=== PATIENT | male | born 1945 | race Caucasian/White ===

== ENCOUNTER 2020-12-20 09:25 | Day surgery (SDC) | payer MEDICARE ==
[~2020-12-20] VITALS: Ht 172.7 cm; Wt 78.0 kg
[~2020-12-20 09:25] MED LIST: LIDOcaine 1% 30ml preserv. free vial SQ STA
[2020-12-20] MEDS ORDERED: LIDOcaine 1% 30ml preserv. free vial SQ STA (09:43)
[2020-12-20 09:51] VITALS: BP 124/73
[2020-12-20] MEDS ORDERED: NO HOME MEDS (09:57)
[2020-12-20] MEDS ORDERED: albumin 25% 100mL bottle x 1 IV PRN (10:00)
[2020-12-20] MEDS ORDERED: normal saline 1000ml 1,000 ML IV SCH (10:20)
[2020-12-20 10:21] VITALS: BP 145/89
[2020-12-20 10:36] VITALS: BP 149/95
[2020-12-20 10:51] VITALS: BP 147/85
[2020-12-20 11:06] VITALS: BP 156/95
[2020-12-20 11:21] VITALS: BP 158/94
[2020-12-20 11:57] LABS: LDH,BODY FLUID 64 U/L; TOTAL PROTEIN,BODY FLUID 3.6 G/DL
== END 2020-12-20 11:37 | disposition home or self-care (01) ==
LOC: SSTAY O 09:25
PROVIDERS: ATTEND Radiology Diagnostic Radiology
DX: J90 Pleural effusion, not elsewhere classified (principal); Z85.3 Personal history of malignant neoplasm of breast; Z90.11 Acquired absence of right breast and nipple
CPT/HCPCS: 32555; 83615; 84157; 87070; 88108; 88305

== ENCOUNTER 2021-02-07 08:24 | Day surgery (SDC) | payer MEDICARE ==
[~2021-02-07] VITALS: Ht 172.7 cm; Wt 75.8 kg
[~2021-02-07 08:24] MED LIST changes: -LIDOcaine 1% 30ml preserv. free vial SQ STA; +NO HOME MEDS
[2021-02-07] MEDS ORDERED: albumin 25% 100mL bottle x 1 IV PRN (08:45)
[2021-02-07] MEDS ORDERED: MULT-1085 PO (08:48)
[2021-02-07] MEDS ORDERED: IBUP-1984 PO (08:48)
[2021-02-07] MEDS ORDERED: CHOL500050 PO (08:48)
[2021-02-07] MEDS ORDERED: ASCO-139 PO (08:48)
[2021-02-07] MEDS ORDERED: OSC500T PO (08:48)
[2021-02-07 08:54] VITALS: BP 158/89
[2021-02-07] MEDS ORDERED: LIDOcaine 1% 30ml preserv. free vial SQ STA (09:01)
[2021-02-07 09:22] VITALS: BP 146/83
[2021-02-07 09:27] VITALS: BP 144/82
[2021-02-07 09:44] VITALS: BP 139/82
[2021-02-07 09:59] VITALS: BP 144/84
== END 2021-02-07 10:10 | disposition home or self-care (01) ==
LOC: SSTAY O 08:24
PROVIDERS: ATTEND Preventive Medicine Aerospace Medicine
DX: J90 Pleural effusion, not elsewhere classified (principal); Z85.3 Personal history of malignant neoplasm of breast; Z79.899 Other long term (current) drug therapy
CPT/HCPCS: 32555

== ENCOUNTER 2021-02-28 06:08 | Day surgery (SDC) | payer MEDICARE ==
[~2021-02-28] VITALS: Ht 172.7 cm; Wt 72.5 kg
[~2021-02-28 06:08] MED LIST changes: +ASCO-139 PO; +CHOL500050 PO; +IBUP-1984 PO; +MULT-1085 PO; -NO HOME MEDS; +OSC500T PO
[2021-02-28] MEDS ORDERED: albumin 25% 100mL bottle x 1 IV PRN (06:30)
[2021-02-28] MEDS ORDERED: [UNRECOGNIZED DRUG - OTHER] PO (06:38)
[2021-02-28] MEDS ORDERED: PUMP160C PO (06:38)
[2021-02-28] MEDS ORDERED: LIDOcaine 1% 30ml preserv. free vial SQ STA (06:41)
[2021-02-28 06:48] VITALS: BP 144/85
[2021-02-28 08:24] VITALS: BP 136/73
[2021-02-28 08:39] VITALS: BP 132/79
[2021-02-28 08:45] VITALS: BP 139/78
[2021-02-28 09:00] VITALS: BP 142/77
[2021-02-28 09:10] VITALS: BP 148/79
== END 2021-02-28 09:20 | disposition home or self-care (01) ==
LOC: SSTAY O 06:08
PROVIDERS: ATTEND Preventive Medicine Aerospace Medicine
DX: J90 Pleural effusion, not elsewhere classified (principal); Z90.11 Acquired absence of right breast and nipple; Z85.3 Personal history of malignant neoplasm of breast
CPT/HCPCS: 32555

== ENCOUNTER 2021-05-02 06:07 | Day surgery (SDC) | payer MEDICARE ==
[~2021-05-02] VITALS: Ht 172.7 cm; Wt 75.9 kg
[~2021-05-02 06:07] MED LIST changes: -IBUP-1984 PO; +PUMP160C PO; +[UNRECOGNIZED DRUG - OTHER] PO
[2021-05-02] MEDS ORDERED: albumin 25% 100mL bottle x 1 IV PRN (06:20)
[2021-05-02] MEDS ORDERED: LIDOcaine 1%/PF 5ML 10 MG/ML VIAL SQ ONE (06:20)
[2021-05-02] MEDS ORDERED: LETR2.5T7 PO (06:34)
[2021-05-02] MEDS ORDERED: CHOL400T PO (06:34)
[2021-05-02] MEDS ORDERED: PALB125T PO (06:34)
[2021-05-02] MEDS ORDERED: CALC-157 PO (06:34)
[2021-05-02 08:30] VITALS: BP 151/95
[2021-05-02 08:34] VITALS: BP 148/84
[2021-05-02 08:45] VITALS: BP 140/90
[2021-05-02 09:00] VITALS: BP 130/78
[2021-05-02 09:15] VITALS: BP 136/82
== END 2021-05-02 09:25 | disposition home or self-care (01) ==
LOC: SSTAY O 06:07
PROVIDERS: ATTEND Radiology Vascular & Interventional Radiology
DX: J90 Pleural effusion, not elsewhere classified (principal); Z85.3 Personal history of malignant neoplasm of breast; Z90.11 Acquired absence of right breast and nipple; Z79.899 Other long term (current) drug therapy
CPT/HCPCS: 32555

== ENCOUNTER 2021-05-30 06:24 | Day surgery (SDC) | payer MEDICARE ==
[~2021-05-30] VITALS: Ht 172.7 cm; Wt 76.4 kg
[~2021-05-30 06:24] MED LIST changes: +CALC-157 PO; +CHOL400T PO; -CHOL500050 PO; +LETR2.5T7 PO; -OSC500T PO; +PALB125T PO; -PUMP160C PO; -[UNRECOGNIZED DRUG - OTHER] PO
[2021-05-30] MEDS ORDERED: LIDOcaine 1%/PF 5ML 10 MG/ML VIAL SQ ONE (06:40)
[2021-05-30] MEDS ORDERED: albumin 25% 100mL bottle x 1 IV PRN (06:40)
[2021-05-30 06:52] VITALS: BP 151/76
[2021-05-30 08:42] VITALS: BP 148/83
[2021-05-30 08:59] VITALS: BP 151/74
[2021-05-30 09:15] VITALS: BP 135/79
[2021-05-30 09:30] VITALS: BP 133/86
== END 2021-05-30 09:40 | disposition home or self-care (01) ==
LOC: SSTAY O 06:24
PROVIDERS: ATTEND Radiology Diagnostic Radiology
DX: J90 Pleural effusion, not elsewhere classified (principal); Z85.3 Personal history of malignant neoplasm of breast; Z90.11 Acquired absence of right breast and nipple; Z79.899 Other long term (current) drug therapy
CPT/HCPCS: 32555

== ENCOUNTER 2021-10-12 08:55 | Day surgery (SDC) | payer MEDICARE ==
[~2021-10-12] VITALS: Ht 172.7 cm; Wt 80.1 kg
[2021-10-12] MEDS ORDERED: LIDOcaine 1% 30ml preserv. free vial SQ STA (09:08)
[2021-10-12 09:15] VITALS: BP 112/67
[2021-10-12] MEDS ORDERED: B-CO1TAB5 PO (09:23)
[2021-10-12] MEDS ORDERED: FLO0.4C PO (09:23)
[2021-10-12 10:10] VITALS: BP 111/61
[2021-10-12 10:15] VITALS: BP 129/73
[2021-10-12 10:30] VITALS: BP 129/73
[2021-10-12 10:45] VITALS: BP 126/62
== END 2021-10-12 10:50 | disposition home or self-care (01) ==
LOC: SSTAY O 08:55
PROVIDERS: ATTEND Radiology Vascular & Interventional Radiology
DX: J90 Pleural effusion, not elsewhere classified (principal); Z79.899 Other long term (current) drug therapy; Z98.890 Other specified postprocedural states
CPT/HCPCS: 32555; 87070; A6258; A6449; C1729